=== PATIENT | female | born 1995 | race Caucasian/White ===

== ENCOUNTER 2018-05-26 07:24 | Outpatient (CLI) | payer OTHER | END 2018-05-26 07:25 | disposition home or self-care (01) | LOC: LAB 07:24 | PROVIDERS: ATTEND Nurse Practitioner Obstetrics & Gynecology | DX: N92.6 Irregular menstruation, unspecified (principal); E28.2 Polycystic ovarian syndrome; E66.9 Obesity, unspecified | CPT/HCPCS: 36415; 82951; 84146 ==

== ENCOUNTER 2019-08-09 16:34 | Outpatient (CLI) | payer OTHER | END 2019-08-09 16:35 | disposition home or self-care (01) | LOC: COV 16:34 | PROVIDERS: ATTEND Family Medicine | DX: R50.9 Fever, unspecified (principal); R05 Cough; M79.10 Myalgia, unspecified site; R53.83 Other fatigue; J02.9 Acute pharyngitis, unspecified | CPT/HCPCS: 81599 ==

== ENCOUNTER 2020-07-04 11:09 | Emergency (ER) | payer OTHER ==
[2020-07-04] MEDS ORDERED: LIDOCAINE 1%-EPI 1:100000 20 ML MDV SUBQ STA (11:31)
[2020-07-04] MEDS ORDERED: BACITRACIN ZINC OINT 1 PACKET TOP STA (11:52)
--- NOTE | 2020-07-04 12:07 | ED Physician Documentation ---
History of Present Illness - Stated complaint Stated Complaint: L ARM LAC - Chief complaint Chief Complaint: MHE - History obtained from History obtained from: Patient - History of Present Illness Timing: Today Pain level max: 0 Pain level now: 0 - Additonal information Additional information: 25-year-old female presents to the emergency department stating that she has a left forearm laceration. She states this was self-inflicted. She states she does not currently feel suicidal or like harming herself. She does not currently have a counselor. She is on no medications. She has cut herself in the past, has never been hospitalized for suicide attempts. Has never attempted suicide. Does not feel like she is going to harm herself at home. Review of Systems Ten Systems: 10 systems reviewed and negative Constitutional: denies: Fever, Chills Respiratory: denies: Cough : denies: Dysuria Skin: denies: Rash Musculoskeletal: denies: Neck pain, Back pain Neurologic: denies: Headache PD PAST MEDICAL HISTORY - Past Medical History Past Medical History: No Cardiovascular: None - Present Medications Home Medications: Ambulatory Orders Medication Instructions Recorded Confirmed No Known Home Medications 07/04/20 07/04/20 - Allergies Allergies/Adverse Reactions: Allergies Allergy/AdvReac Type Severity Reaction Status Date / Time No Known Drug Allergies Allergy Verified 07/04/20 11:15 - Social History Does the pt smoke?: No Smoking Status: Never smoker PD ED PE NORMAL - Vitals Vital signs reviewed: Yes - General General: Alert and oriented X 3, No acute distress, Well developed/nourished - HEENT HEENT: Moist mucous membranes - Neck Neck: Supple, no meningeal sign - Cardiac Cardiac: RRR - Respiratory Respiratory: No respiratory distress, Clear bilaterally - Abdomen Abdomen: Soft, Non tender, Non distended - Derm Derm: Warm and dry - Extremities Extremities: Other (L forearm laceration - volar aspect, 5cm, into subcutaneous fat.. NVI) - Neuro Neuro: Alert and oriented X 3 - Psych Psych: Normal mood, Normal affect Results - Vitals Vitals: Vital Signs - 24 hr 07/04/20 07/04/20 11:13 13:05 Temperature 36.6 C 37.5 C Heart Rate 125 H 98 Respiratory 22 19 Rate Blood Pressure 131/106 H 121/70 O2 Saturation 100 99 Oxygen O2 Source Room air Procedures - Laceration (location) L forearm Length in cm: 5 Wound type: Linear, Into subcut fat, Clean Neurovascular status: Sensory intact, Motor intact, Vascular intact Tendon involvement: Tendon intact. No: Tendon Injury Anesthesia: Lidocaine 1% with epi Wound preparation: Chlorhexadine, Irrigated copiously NS Skin layer closure: Maribel Other: Patient tolerated well, No complications, Neurovascular intact, Dressing applied, Tetanus booster given PD MEDICAL DECISION MAKING - ED course Complexity details: considered differential, d/w patient ED course: Is a 25-year-old female who presents to the emergency department with a left forearm laceration, self-inflicted. This was repaired. Tolerated well. Tdap given. Warnings of infection and instructions on wound care given at bedside. Also counseled on how to minimize scarring. Patient was also seen by social work. Patient is able to contract for safety. Her friend will stay with her. Resources given. She will return if she worsens. Patient counseled regarding signs and symptoms for which I believe and urgent re-evaluation would be necessary. Patient with good understanding of and agreement to plan and is comfortable going home at this time This document was made in part using voice recognition software. While efforts are made to proofread this document, sound alike and grammatical errors may occur. Departure - Departure Disposition: 01 Home, Self Care Clinical Impression: Self-harming behavior Forearm laceration Qualifiers: Encounter type: initial encounter Laterality: left Qualified Code(s): S51.812A - Laceration without foreign body of left forearm, initial encounter Condition: Good Instructions: ED Laceration Ext Sutr Stap Tape Follow-Up: Pj Hernandez DO [Provider Admit Priv/Credential] - (in 14 days for staple removal ) Comments: Your maribel should be removed in 10-14 days with your doctor. Follow-up with a counselor and a primary care provider as directed by social work today. Crisis Line and is available to talk to someone [email or web address] is also available to chat with someone online if you prefer. There are also many resources on this website and apps for your phone to help with your mental health You can also text the word START to [phone] to chat with someome via text. Discharge Date/Time: 07/04/20 13:26
[2020-07-04] MEDS ORDERED: TETANUS/DIPHTHERIA/PERTUSSIS 0.5 ML SYRINGE IM ONE (12:38)
[2020-07-04 13:06] VITALS: BP 121/70
== END 2020-07-04 13:26 | disposition home or self-care (01) ==
LOC: ED 11:09
DX: S51.812A Laceration without foreign body of left forearm, initial encounter (principal); X78.9XXA Intentional self-harm by unspecified sharp object, initial encounter; F91.8 Other conduct disorders; Z23 Encounter for immunization
CPT/HCPCS: 12002; 90471; 90715; 99283; A9270; 80053; 80307; 80320; 80329; 83690; 84443; 85025